=== PATIENT | female | born 1930 | race Caucasian/White ===

== ENCOUNTER 2016-09-04 15:12 | Emergency (ER) | payer MEDICARE, BC | END 2016-09-04 17:20 | disposition left against medical advice (07) | LOC: ER 15:12 | DX: Z53.21 Procedure and treatment not carried out due to patient leaving prior to being seen by health care provider (principal) | CPT/HCPCS: 71020 ==

== ENCOUNTER 2016-09-14 12:30 | Emergency (ER) | payer MEDICARE, BC | END 2016-09-14 14:20 | disposition home or self-care (01) | LOC: ER 13:35 | DX: J42 Unspecified chronic bronchitis (principal); I10 Essential (primary) hypertension; Z93.1 Gastrostomy status; Z99.81 Dependence on supplemental oxygen; Z79.82 Long term (current) use of aspirin; Z79.899 Other long term (current) drug therapy | CPT/HCPCS: 36415; 71010; 80053; 82553; 83880; 84484; 85025; 93005 ==